=== PATIENT | female | born 1960 | race Caucasian/White ===

== ENCOUNTER 2021-08-21 13:57 | Outpatient (CLI) | payer OTHER | END 2021-08-21 13:58 | disposition critical access hospital (66) | LOC: EMS 13:57 | DX: M25.552 Pain in left hip (principal); W54.1XXA Struck by dog, initial encounter; W18.39XA Other fall on same level, initial encounter; Y92.838 Other recreation area as the place of occurrence of the external cause | CPT/HCPCS: A0425; A0429 ==

== ENCOUNTER 2021-08-21 14:15 | Observation (INO) | payer OTHER ==
--- NOTE | 2021-08-21 14:30 | ED Physician Documentation ---
PD HPI LOWER EXT INJURY - Stated complaint Stated Complaint: L HIP PX - History obtained from History obtained from: Patient, EMS - History of Present Illness PD HPI LOW EXT INJURY LOCATION: Left, Hip Type of injury: Fall Where injury occurred: Park Timing - onset: Today Timing - duration: Minutes Timing - details: Abrupt onset, Still present Improved by: Rest, Immobilization Worsened by: Moving, Palpating Associated symptoms: No: Weakness, Numbness, Tingling, Swelling, Discolored Similar symptoms before: Has not had sx before Recently seen: Not recently seen - Additional information Additional information: Previously well 61-year-old female was out walking her dog when she was knocked over by a dog at the dog park and fell onto her left hip. She heard a pop and crack and has pain in that side. She was not willing to get up and try to ambulate. Medics went to pick her up and found that her leg was not rotated or shortened the and that she had pain. She was transported BLS to the emergency department without further complication. Review of Systems Constitutional: denies: Fever Ears: denies: Ear pain Nose: denies: Congestion Throat: denies: Sore throat Cardiac: denies: Chest pain / pressure Respiratory: denies: Dyspnea, Cough GI: denies: Abdominal Pain, Nausea, Vomiting, Constipation : denies: Dysuria, Frequency Skin: denies: Rash Musculoskeletal: reports: Extremity pain. denies: Neck pain, Back pain Neurologic: denies: Generalized weakness, Focal weakness, Numbness PD PAST MEDICAL HISTORY - Allergies Allergies/Adverse Reactions: Allergies Allergy/AdvReac Type Severity Reaction Status Date / Time No Known Drug Allergies Allergy Verified 08/21/21 16:36 PD ED PE NORMAL - Vitals Vital signs reviewed: Yes (hypertensive ) - General General: Alert and oriented X 3, No acute distress, Well developed/nourished - HEENT HEENT: Atraumatic, PERRL, EOMI - Neck Neck: Supple, no meningeal sign - Respiratory Respiratory: No respiratory distress - Derm Derm: Normal color, Warm and dry, No rash - Extremities Extremities: No deformity, No edema, Other (There is not pain to palpation of the trochanter or with flex ext of the hip passively. There is pain to direct palpation over the left pubic ramus. Obvious and bad pain. 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, No motor deficit, No sensory deficit, Normal speech Eye Opening: Spontaneous Motor: Obeys Commands Verbal: Oriented GCS Score: 15 - Psych Psych: Normal mood, Normal affect Results - Vitals Vitals: Vital Signs - 24 hr 08/21/21 08/21/21 08/21/21 14:28 14:37 16:37 Temperature 36.3 C L 36.3 C L Heart Rate 68 68 70 Respiratory 18 20 15 Rate Blood Pressure 159/94 H 159/94 H 149/83 H O2 Saturation 100 100 98 08/21/21 18:00 Temperature Heart Rate 70 Respiratory 15 Rate Blood Pressure 149/83 H O2 Saturation 98 Oxygen O2 Source Room air - Labs Labs: Laboratory Tests 08/21/21 18:14 WBC 12.9 H RBC 4.06 L Hgb 12.7 Hct 38.1 MCV 93.8 MCH 31.3 H MCHC 33.3 RDW 12.0 Plt Count 326 MPV 8.8 Neut # (Auto) 10.7 H Lymph # (Auto) 1.2 L [place] # (Auto) 0.8 Eos # (Auto) 0.1 Baso # (Auto) 0.1 Absolute Nucleated RBC 0.00 Nucleated RBC % 0.0 - Rads (name of study) hip w pelvis L Radiology: Prelim report reviewed (Impression: Left superior and inferior pubic rami fractures. Mild displacement. Moderate bilateral hip osteoarthritis.), EMP read indepedently, See rad report PD MEDICAL DECISION MAKING - ED course Complexity details: reviewed old records, reviewed results, re-evaluated patient, considered differential, d/w patient ED course: 61 y/o female with GLF at the [facility] has broken her pelvis with superior and inferior pubic rami fractures. She is administered IM toradal and a wheeled walker. We will provide some narcotic pain reliever and an ortho follow up. Although this seems like a reasonable plan for of fracture the practicality is an doable. This young person has enough force to this fracture that she has overriding bones and any movement that she is having is causing significant spasm in her leg. She lives alone and she has 2 children that may be able to come to help her within the next day or 2. This is not a safe discharge for home. We did attempt to ambulate the patient with crutches and with a walker and with a brace to stabilize her knee on the affected side. The patient was able to sit up at the side of the bed by herself. She is not able to ambulate any distance with assistance. I contacted our hospitalist Dr. Senait Jacobs and she graciously agreed to host the patient in the hospital. Departure - Departure Disposition: ED Place in Observation Clinical Impression: Pubic ramus fracture Qualifiers: Encounter type: initial encounter Fracture type: closed Laterality: left Qualified Code(s): S32.592A - Other specified fracture of left pubis, initial encounter for closed fracture Condition: Stable
--- NOTE | 2021-08-21 14:57 | XRAY Report ---
PROCEDURE: Hip w/Pelvis 2-3V LT INDICATIONS: fall L pubic ramus tender TECHNIQUE: AP pelvis with lateral view(s) of the left hip(s). COMPARISON: None. FINDINGS: Bones: No fractures or dislocations. Oblique fracture through the left superior and inferior pubic r ami noted.. No suspicious bony lesions. Moderate acetabular joint space narrowing Soft tissues: The visualized bowel gas pattern is normal. No suspicious soft tissue calcifications. IMPRESSION: Left superior and inferior pubic rami fractures. Mild displacement. Moderate bilateral hip osteoarthritis Reviewed by: Brandt Peres MD on 08/21/2021 1:55 PM [email or web address] Approved by: Brandt Peres MD on 08/21/2021 1:55 PM AKDT Station ID: [id number]
[2021-08-21] MEDS ORDERED: KETOROLAC 60 MG/2 ML VIAL IM STA (15:01)
[2021-08-21] MEDS ORDERED: ONDANSETRON ODT 4 MG TABLET TL STA (15:50)
[2021-08-21] MEDS ORDERED: HYDROmorphone 1 MG/ML CARPUJECT IM STA (15:50)
[2021-08-21] MEDS ORDERED: ONDANSETRON ODT 4 MG TABLET TL PRN (18:06)
[2021-08-21] MEDS ORDERED: ONDANSETRON 4 MG/2 ML VIAL IVP PRN (18:06)
[2021-08-21] MEDS ORDERED: SODIUM CHLORIDE FLUSH 0.9% 10 ML SYRINGE IVP PRN (18:06)
[2021-08-21] MEDS ORDERED: hydrALAZINE INJ 20 MG/ML VIAL IVP PRN (18:10)
[2021-08-21 18:23] LABS: BASOPHILS # (AUTO) 0.1 10^3/uL (0.0-0.1); BASOPHILS % (AUTO) 0.8 %; EOSINOPHILS # (AUTO) 0.1 10^3/uL (0.0-0.7); EOSINOPHILS % (AUTO) 0.6 %; HCT - HEMATOCRIT 38.1 % (37.0-47.0); HGB - HEMOGLOBIN 12.7 g/dL (12.0-16.0); LYMPHOCYTES # (AUTO) 1.2 10^3/uL (1.5-3.5); LYMPHOCYTES % (AUTO) 8.9 %; MEAN CORPUSCULAR HEMOGLOBIN 31.3 pg (27.0-31.0); MEAN CORPUSCULAR HGB CONC 33.3 g/dL (32.0-36.0); MEAN CORPUSCULAR VOLUME 93.8 fL (81.0-99.0); MEAN PLATELET VOLUME 8.8 fL (7.9-10.8); MONOCYTES # (AUTO) 0.8 10^3/uL (0.0-1.0); MONOCYTES % (AUTO) 6.4 %; NEUTROPHILS # (AUTO) 10.7 10^3/uL (1.5-6.6); NEUTROPHILS % (AUTO) 82.8 %; PLT - PLATELET COUNT 326 10^3/uL (130-450); RED BLOOD COUNT 4.06 10^6/uL (4.20-5.40); WHITE BLOOD COUNT 12.9 x10^3/uL (4.8-10.8)
[2021-08-21 18:31] LABS: INR 1.2 (0.8-1.2); PT - PROTHROMBIN TIME 12.9 secs (9.9-12.6)
[2021-08-21 18:35] LABS: ALBUMIN 4.2 g/dL (3.2-5.5); ALBUMIN/GLOBULIN RATIO 1.2 (1.0-2.2); BILIRUBIN,TOTAL 0.8 mg/dL (0.2-1.0); CALCIUM 8.9 mg/dL (8.5-10.3); CREATININE 0.7 mg/dL (0.4-1.0); POTASSIUM 3.3 mmol/L (3.5-5.0); TOTAL PROTEIN 7.7 g/dL (6.7-8.2)
[2021-08-21 20:11] LABS: B. PARAPERTUSSIS- RESP PCR PAN NOT DETECTED; B. PERTUSSIS- RESP PCR PANEL NOT DETECTED; C. PNEUMONIAE- RESP PCR PANEL NOT DETECTED; CORONAVIRUS 229E-RESP PCR NOT DETECTED; CORONAVIRUS HKU1-RESP PCR NOT DETECTED; CORONAVIRUS NL63-RESP PCR NOT DETECTED; CORONAVIRUS OC43-RESP PCR NOT DETECTED; HUMAN METAPNEUMOVIRUS NOT DETECTED; INFLUENZA A- RESP PCR PANEL NOT DETECTED; INFLUENZA B - RESP PCR PANEL NOT DETECTED; M. PNEUMONIAE- RESP PCR PANEL NOT DETECTED; PARAINFLUENZA VIRUS 1 NOT DETECTED; PARAINFLUENZA VIRUS 2 NOT DETECTED; PARAINFLUENZA VIRUS 3 NOT DETECTED; PARAINFLUENZA VIRUS 4 NOT DETECTED; RHINOVIRUS/ENTEROVIRUS NOT DETECTED; RSV- RESP PCR PANEL NOT DETECTED; SARS-CoV-2 -RESP PCR PANEL NOT DETECTED
--- NOTE | 2021-08-21 20:24 | HISTORY & PHYSICAL EXAMINATION ---
Chief Complaint - Chief Complaint Chief Complaint: mechanical fall History of Present Illness - Admitted From Admitted From:: [facility] ED - History Obtained From Records Reviewed: yes History obtained from: patient - History of Present Illness HPI Comment/Other: Patient is a 61-year-old female with medical history significant for hyperlipide dago, glaucoma, osteopenia, hypothyroidism, depression, ADHD and asthma who presented to the ED after being knocked off her feet at a dog park. She landed on her hips. She was unable to bear weight when assisted to her feet. She did not hit her head or blackout at the time of the occurrence. She had an x-ray of the hips done in the ED which showed left superior and inferior pubic rami fractures. Mild displacement. Moderate bilateral hip osteoarthritis also noted. Due to significant pain and unable to bear weight she was presented for admission for further management. At bedside she appeared comfortable. She denied chest pain, dyspnea, abdominal pain, nausea, vomiting, fever or chills. History - Past Medical History Cardiovascular: reports: High cholesterol Respiratory: reports: Asthma, COPD Neuro: reports: Migraines Endocrine/Autoimmune: reports: HyPOthyroidism GI: reports: Chronic constipation, Hemorrhoids : reports: None HEENT: reports: Other Psych: reports: Depression, ADD/ADHD Musculoskeletal: reports: Osteoarthritis, Osteoporosis, Osteopenia, Other Derm: reports: None Other Past Medical History: compression fracture cervical spine. reactive asthma/ bronchitis. depression/ anxiety - Past Surgical History HEENT: reports: Cataracts, Detached retina repair, Tonsil/Adenoidectomy - Family & Social History Family History Comment/Other: mother: CHF, hypertension Social History Notes: Patient denies tobacco, alcohol or recreational substance use. - POLST Patient has POLST: No POLST Status: Full Code Meds/Allgy - Allergies Allergies/Adverse Reactions: Allergies Allergy/AdvReac Type Severity Reaction Status Date / Time No Known Drug Allergies Allergy Verified 08/21/21 16:36 Review of Systems - Constitutional Constitutional: denies: Fatigue, Fever, Weakness - Eyes Eyes: denies: Pain, Vision loss - Ears, Nose & Throat Ears, Nose & Throat: denies: Vertigo, Sore throat - Cardiovascular Cariovascular: denies: Irregular heart rate, Palpitations, Chest pain, Lightheadedness, Syncope, Exertional dyspnea - Respiratory Respiratory: denies: Cough, Sputum production, Wheezing, SOB at rest, SOB with exertion - Gastrointestinal Gastrointestinal: denies: Abdominal pain, Abdominal distention, Nausea, Vomiting - Genitourinary Genitourinary: denies: Dysuria, Frequency, Urgency, Hematuria - Musculoskeletal Musculoskeletal: denies: Muscle pain, Back pain, Muscle aches - Integumentary Integumentary: denies: Rash, Pruritis, Lesions, Dryness - Neurological Neurological: denies: General weakness, Focal weakness, Headache - Psychiatric Psychiatric: denies: Depression, Anxiety - Endocrine Endocrine: denies: Polyuria, Polydypsia - Hematologic/Lymphatic Hematologic/Lymphatic: denies: Anemia, Bruising, Petechiae Prior Level of Functionality: Patient is independent of activities of daily living. Exam - Vital Signs Vital Signs: Vital Signs x48h Temp Pulse Resp BP Pulse Ox 08/21/21 18:52 36.3 C L 70 15 98 08/21/21 18:00 70 15 149/83 H 98 08/21/21 16:37 70 15 149/83 H 98 08/21/21 14:37 36.3 C L 68 20 159/94 H 100 08/21/21 14:28 36.3 C L 68 18 159/94 H 100 - Physical Exam General Appearance: positive: Alert, Moderate distress Eyes Bilateral: positive: PERRL, EOMI ENT: positive: No signs of dehydration Neck: positive: No JVD, Trachea midline Respiratory: positive: Chest non-tender, No respiratory distress, Breath sounds nml. negative: Wheezes, Rales, Rhonchi Cardiovascular: positive: Regular rate & rhythm, No murmur Abdomen: positive: Non-tender, No organomegaly, Nml bowel sounds, No distention. negative: Guarding, Rebound Back: positive: Nml inspection Skin: positive: Color nml, No rash, Warm, Dry Extremities: positive: Non-tender, Nml appearance, No pedal edema Neurologic/Psychiatric: positive: Oriented x3, Mood/affect nml Conclusion/Plan - Problem List (1) Pubic ramus fracture Conclusion/Plan: Pain management with Toradol, Tylenol and Dilaudid as needed. Flexeril for muscle relaxant. Patient would likely need crutches upon discharge. Qualifiers: Encounter type: initial encounter Fracture type: closed Laterality: left Qualified Code(s): S32.592A - Other specified fracture of left pubis, initial encounter for closed fracture - Lab Results Fish Bones: 08/21/21 18:14 08/21/21 18:14 Core Measures - Anticipated LOS I expect patient to be DC'd or transferred within 96 hours.: Yes - DVT/VTE - Prophylaxis VTE/DVT Device ordered at admit?: Yes VTE/DVT Prophylaxis med ordered at admit?: Yes
[2021-08-21] MEDS ORDERED: POTASSIUM CHLORIDE 20 MEQ TABLET PO ONE (20:49)
[2021-08-21] MEDS: SODIUM CHLORIDE 0.9% 1,000 ML IV SCH (21:50)
[2021-08-21] MEDS: SODIUM CHLORIDE FLUSH 0.9% 10 ML SYRINGE IVP SCH (21:50)
[2021-08-21] MEDS: HYDROmorphone 0.5 MG/0.5 ML SYRINGE IVP PRN (23:00)
[2021-08-21] MEDS: KETOROLAC 15 MG/ML VIAL IVP PRN (23:00)
[2021-08-22 05:06] LABS: BASOPHILS # (AUTO) 0.1 10^3/uL (0.0-0.1); EOSINOPHILS # (AUTO) 0.1 10^3/uL (0.0-0.7); EOSINOPHILS % (AUTO) 1.6 %; HCT - HEMATOCRIT 35.7 % (37.0-47.0); HGB - HEMOGLOBIN 11.6 g/dL (12.0-16.0); LYMPHOCYTES % (AUTO) 23.9 %; MEAN CORPUSCULAR HEMOGLOBIN 30.7 pg (27.0-31.0); MEAN CORPUSCULAR HGB CONC 32.5 g/dL (32.0-36.0); MEAN CORPUSCULAR VOLUME 94.4 fL (81.0-99.0); MEAN PLATELET VOLUME 9.2 fL (7.9-10.8); MONOCYTES # (AUTO) 0.9 10^3/uL (0.0-1.0); MONOCYTES % (AUTO) 11.2 %; NEUTROPHILS # (AUTO) 5.1 10^3/uL (1.5-6.6); NEUTROPHILS % (AUTO) 61.9 %; PLT - PLATELET COUNT 305 10^3/uL (130-450); RED BLOOD COUNT 3.78 10^6/uL (4.20-5.40); RED CELL DISTRIBUTION WIDTH 12.3 % (12.0-15.0); WHITE BLOOD COUNT 8.3 x10^3/uL (4.8-10.8)
[2021-08-22 05:20] LABS: CALCIUM 8.7 mg/dL (8.5-10.3); CREATININE 0.6 mg/dL (0.4-1.0); MAGNESIUM 1.9 mg/dL (1.7-2.8); PHOSPHORUS 3.1 mg/dL (2.5-4.6); POTASSIUM 4.2 mmol/L (3.5-5.0)
[2021-08-22] MEDS: KETOROLAC 15 MG/ML VIAL IVP PRN ×2 (06:29→12:38)
[2021-08-22] MEDS: ACETAMINOPHEN 325 MG TABLET PO PRN ×2 (06:33→12:38)
[2021-08-22] MEDS: SODIUM CHLORIDE 0.9% 1,000 ML IV SCH ×2 (06:35→16:54)
[2021-08-22] MEDS: SODIUM CHLORIDE FLUSH 0.9% 10 ML SYRINGE IVP SCH ×2 (09:44→16:54)
[2021-08-22] MEDS: CYCLOBENZAPRINE 10 MG TABLET PO PRN (09:45)
[2021-08-22] MEDS: HYDROmorphone 0.5 MG/0.5 ML SYRINGE IVP PRN (11:42)
--- NOTE | 2021-08-22 15:19 | PROVIDER PROGRESS NOTE ---
Assessment/Plan - Problem List (1) Pubic ramus fracture Qualifiers: Encounter type: subsequent encounter Fracture type: closed Laterality: left Assessment/Plan: She is admitted for pain control, needs IV medications. The pain has limited her mobility significantly. Will order PT and OT to evaluate her level of functioning with this fracture and to determine if she needs DME, caregivers or placement in a SNF or respite. (2) Urinary retention. Impression/plan: Will order straight cath as needed. Will order Flomax. This problem will also need to be assessed by OT (3) Hypothyroidism Impression/plan: Will order her home thyroid dose. We will check TSH level to assess adequate replacement. (4) Glaucoma Impression/plan: Will order her home eyedrops (5) ADHD Impression/plan: Will order her home Adderall and psychiatric med. - Current Meds Current Meds: Current Medications Generic Name Dose Route Start Last Admin Trade Name Freq PRN Reason Stop Dose Admin Acetaminophen 650 mg 08/21/21 18:06 08/22/21 12:38 Acetaminophen 325 Mg Tablet PO 650 mg Q4HR PRN Administration Pain 1 to 4, or Fever Cyclobenzaprine HCl 10 mg 08/21/21 20:50 08/22/21 09:45 Cyclobenzaprine 10 Mg Tablet PO 10 mg TID PRN Administration Spasms Hydromorphone HCl 0.5 mg 08/21/21 18:11 08/22/21 11:42 Hydromorphone 0.5 Mg/0.5 Ml Syringe IVP 0.5 mg Q2H PRN Administration Severe Pain Sodium Chloride 1,000 mls @ 100 mls/hr 08/21/21 21:00 08/22/21 06:35 Normal Saline 0.9% IV 100 mls/hr .Q10H TOMMIE Administration Ketorolac Tromethamine 15 mg 08/21/21 18:11 08/22/21 12:38 Ketorolac 15 Mg/Ml Vial IVP 08/26/21 18:10 15 mg Q6HR PRN Administration PAIN 5-7 Sodium Chloride 10 ml 08/21/21 18:06 08/22/21 11:43 Sodium Chloride Flush 0.9% 10 Ml Syringe IVP 10 ml PRN PRN Administration NEEDED PER PROVIDER ORDERS Sodium Chloride 10 ml 08/22/21 01:00 08/22/21 09:44 Sodium Chloride Flush 0.9% 10 Ml Syringe IVP Not Given 0100,0900,1700 TOMMIE - Lab Result Fish Bone Diagrams: 08/22/21 04:41 08/22/21 04:41 - Additional Planning My Orders: My Active Orders 08/21/21 Dinner Regular Diet [DIET] 08/21/21 18:06 Activity Orders [RC] Q2HR IO [RC] IOSHIFT Initiate Bowel Care Protocol [RC] .protocol Initiate Personal Care Protoco [RC] .protocol Oxygen Therapy [RC] .PRN Vital Signs [RC] 0800,1600,0000 Acetaminophen [Tylenol] 650 mg PO Q4HR PRN Ondansetron Inj [Zofran Inj] 4 mg IVP Q6HR PRN Ondansetron Odt [Zofran Odt] 4 mg TL Q6HR PRN Sodium Chloride Flush 0.9% [Normal Saline Flush 0.9%] 10 ml IVP PRN PRN Code Status [OTHERS] Routine Condition of Patient [OTHERS] Routine DVT Prophylaxis [OTHERS] Routine 08/21/21 18:08 IV Insert [RC] .ONCE Initiate Line Care Protocol [RC] QSHIFT SCDs [RC] QSHIFT 08/21/21 18:10 hydrALAZINE INJ [Apresoline Inj] 10 mg IVP Q8H PRN 08/21/21 18:11 HYDROmorphone 0.5MG SYRINGE [Dilaudid 0.5MG Syringe] 0.5 mg IVP Q2H PRN Ketorolac Inj (15Mg) [Toradol Inj (15Mg)] 15 mg IVP Q6HR PRN 08/22/21 Evaluate and Treat OT [OT] Routine Evaluate and Treat PT [PT] Routine 08/22/21 01:00 Sodium Chloride Flush 0.9% [Normal Saline Flush 0.9%] 10 ml IVP 0100,0900,1700 08/22/21 14:36 Straight Catheter Insertion [RC] PRN 08/23/21 09:00 Tamsulosin [Flomax] 0.4 mg PO DAILY Subjective - Subjective Patient Reports: Other (She is unable to urinate in bed) Nursing Reports: Other (Bladder scan showed 900 cc urine) Objective Vital Signs: Vital Signs - 24 hr 08/21/21 08/21/21 08/21/21 16:37 18:00 18:52 Temperature 36.3 C L Heart Rate 70 70 70 Heart Rate [ Brachial] Respiratory 15 15 15 Rate Blood Pressure 149/83 H 149/83 H Blood Pressure [Right Brachial artery] O2 Saturation 98 98 98 08/21/21 08/21/21 08/22/21 19:30 23:59 08:20 Temperature 36.3 C L 37.1 C 37.2 C Heart Rate Heart Rate [ 73 75 75 Brachial] Respiratory 20 16 16 Rate Blood Pressure Blood Pressure 135/74 H 121/63 110/55 L [Right Brachial artery] O2 Saturation 96 100 98 08/22/21 12:27 Temperature 37.2 C Heart Rate Heart Rate [ 80 Brachial] Respiratory 16 Rate Blood Pressure Blood Pressure 124/74 [Right Brachial artery] O2 Saturation 99 Oxygen O2 Source Room air I&O (Last 24 Hrs): Intake and Output Totals x24h 08/20/21 08/21/21 08/22/21 23:59 23:59 23:59 Intake Total 740 1655 Output Total 1000 2450 Balance -260 -795 General: Other (Cachectic female, appears older than her age) HEENT: Atraumatic, Mucous membr. moist/pink Neck: Supple, No JVD Neuro: Alert, Non Focal Cardiovascular: Regular rate, No murmurs Respiratory: No respiratory distress, Breath sounds nml Abdomen: Normal bowel sounds, Soft Extremities: No clubbing, No edema - Results Results: Laboratory Results WBC 8.3 x10^3/uL (4.8-10.8) 08/22/21 04:41 RBC 3.78 10^6/uL (4.20-5.40) L 08/22/21 04:41 Hgb 11.6 g/dL (12.0-16.0) L 08/22/21 04:41 Hct 35.7 % (37.0-47.0) L 08/22/21 04:41 MCV 94.4 fL (81.0-99.0) 08/22/21 04:41 MCH 30.7 pg (27.0-31.0) 08/22/21 04:41 MCHC 32.5 g/dL (32.0-36.0) 08/22/21 04:41 RDW 12.3 % (12.0-15.0) 08/22/21 04:41 Plt Count 305 10^3/uL (130-450) 08/22/21 04:41 MPV 9.2 fL (7.9-10.8) 08/22/21 04:41 Neut # (Auto) 5.1 10^3/uL (1.5-6.6) 08/22/21 04:41 Lymph # (Auto) 2.0 10^3/uL (1.5-3.5) 08/22/21 04:41 [place] # (Auto) 0.9 10^3/uL (0.0-1.0) 08/22/21 04:41 Eos # (Auto) 0.1 10^3/uL (0.0-0.7) 08/22/21 04:41 Baso # (Auto) 0.1 10^3/uL (0.0-0.1) 08/22/21 04:41 Absolute Nucleated RBC 0.00 x10^3/uL 08/22/21 04:41 Nucleated RBC % 0.0 /100WBC 08/22/21 04:41 PT 12.9 secs (9.9-12.6) H 08/21/21 18:14 INR 1.2 (0.8-1.2) 08/21/21 18:14 Sodium 136 mmol/L (135-145) 08/22/21 04:41 Potassium 4.2 mmol/L (3.5-5.0) 08/22/21 04:41 Chloride 103 mmol/L (101-111) 08/22/21 04:41 Carbon Dioxide 25 mmol/L (21-32) 08/22/21 04:41 Anion Gap 8.0 (6-13) 08/22/21 04:41 BUN 16 mg/dL (6-20) 08/22/21 04:41 Creatinine 0.6 mg/dL (0.4-1.0) 08/22/21 04:41 Estimated GFR (MDRD) 102 (>89) 08/22/21 04:41 Glucose 110 mg/dL (70-100) H 08/22/21 04:41 Calcium 8.7 mg/dL (8.5-10.3) 08/22/21 04:41 Phosphorus 3.1 mg/dL (2.5-4.6) 08/22/21 04:41 Magnesium 1.9 mg/dL (1.7-2.8) 08/22/21 04:41 Total Bilirubin 0.8 mg/dL (0.2-1.0) 08/21/21 18:14 AST 19 IU/L (10-42) 08/21/21 18:14 ALT 26 IU/L (10-60) 08/21/21 18:14 Alkaline Phosphatase 53 IU/L (42-121) 08/21/21 18:14 Total Protein 7.7 g/dL (6.7-8.2) 08/21/21 18:14 Albumin 4.2 g/dL (3.2-5.5) 08/21/21 18:14 Globulin 3.5 g/dL (2.1-4.2) 08/21/21 18:14 Albumin/Globulin Ratio 1.2 (1.0-2.2) 08/21/21 18:14 Nasal Adenovirus (PCR) NOT DETECTED 08/21/21 18:15 Nasal B. parapertussis DNA (PCR) NOT DETECTED 08/21/21 18:15 Nasal Coronavir 229E PCR NOT DETECTED 08/21/21 18:15 Nasal Coronavir HKU1 PCR NOT DETECTED 08/21/21 18:15 Nasal Coronavir NL63 PCR NOT DETECTED 08/21/21 18:15 Nasal Coronavir OC43 PCR NOT DETECTED 08/21/21 18:15 Nasal Enterovir/Rhinovir PCR NOT DETECTED 08/21/21 18:15 Nasal Influenza B PCR NOT DETECTED 08/21/21 18:15 Nasal Influenza A PCR NOT DETECTED 08/21/21 18:15 Nasal Parainfluen 1 PCR NOT DETECTED 08/21/21 18:15 Nasal Parainfluen 2 PCR NOT DETECTED 08/21/21 18:15 Nasal Parainfluen 3 PCR NOT DETECTED 08/21/21 18:15 Nasal Parainfluen 4 PCR NOT DETECTED 08/21/21 18:15 Nasal RSV (PCR) NOT DETECTED 08/21/21 18:15 Nasal B.pertussis DNA PCR NOT DETECTED 08/21/21 18:15 Nasal C.pneumoniae (PCR) NOT DETECTED 08/21/21 18:15 Tonio Human Metapneumo PCR NOT DETECTED 08/21/21 18:15 Nasal M.pneumoniae (PCR) NOT DETECTED 08/21/21 18:15 Nasal SARS-CoV-2 (PCR) NOT DETECTED 08/21/21 18:15 SARS-CoV-2 (PCR) NOT DETECTED 08/21/21 18:15
[2021-08-22] MEDS ORDERED: diphenhydrAMINE 25 MG CAPSULE PO PRN (20:46)
[2021-08-22] MEDS ORDERED: ATORVASTATIN 10 MG TABLET PO SCH (21:00)
[2021-08-22] MEDS: DORZOLAMIDE/TIMOLOL OPHTH DROPS EACHEYE SCH (22:08)
[2021-08-23] MEDS: KETOROLAC 15 MG/ML VIAL IVP PRN ×3 (00:19→15:39)
[2021-08-23] MEDS: SODIUM CHLORIDE FLUSH 0.9% 10 ML SYRINGE IVP SCH ×3 (00:27→15:40)
[2021-08-23] MEDS: SODIUM CHLORIDE 0.9% 1,000 ML IV SCH ×2 (02:06→11:27)
[2021-08-23] MEDS ORDERED: LEVOTHYROXINE 75 MCG TABLET PO SCH (07:00)
[2021-08-23] MEDS: DORZOLAMIDE/TIMOLOL OPHTH DROPS EACHEYE SCH (08:54)
[2021-08-23] MEDS ORDERED: PARoxetine 10 MG TABLET PO SCH (09:00)
[2021-08-23] MEDS ORDERED: TAMSULOSIN 0.4 MG CAPSULE PO SCH (09:00)
[2021-08-23] MEDS ORDERED: buPROPion XL 150 MG TABLET PO SCH (09:00)
[2021-08-23] MEDS: ACETAMINOPHEN 325 MG TABLET PO PRN (10:08)
[2021-08-23] MEDS: oxyCODONE 5 MG TABLET PO PRN ×2 (10:09→17:51)
[2021-08-23] MEDS ORDERED: CALCIUM CARB (OYSTER SHELL) 500 MG TABLET PO SCH (11:00)
[2021-08-23] MEDS ORDERED: DOCUSATE SODIUM 100 MG CAPSULE PO SCH (11:00)
[2021-08-23] MEDS ORDERED: CHOLECALCIFEROL 400 UNIT TABLET PO SCH (11:00)
--- NOTE | 2021-08-23 14:53 | PROVIDER PROGRESS NOTE ---
Assessment/Plan - Problem List (1) Pubic ramus fracture Qualifiers: Encounter type: subsequent encounter Fracture type: closed Laterality: left Assessment/Plan: She is admitted for pain control, received IV Dilaudid. Today she says the Dilaudid is too strong and making her weak, and she requests oxycodone. We will change to oxycodone for pain control. The pain in her L hip area has limited her mobility significantly. She had PT evaluate her level of functioning with this fracture and to determine if she needs DME, caregivers or placement in a SNF or respite. The physical therapist has advised that she needs SNF, or else she needs a lot of caregivers, will need rehab and would need alot of durable medical equipment supplies. SW was informed and is looking for a SNF for her to be [facility] to. There was no orthopedic consults since this Dx is not a surgical indication. PT stated that usually patients with pelvic fractures have no weight bearing restrictions. But the patient tried walking with crutches and was only using her right leg for weight bearing. (2) Urinary retention. Impression/plan: She has needed straight cath twice We ordered Flomax. This problem will also need to be assessed by OT (3) Hypothyroidism Impression/plan: We ordered her home thyroid dose. Her TSH was adequate (4) Glaucoma Impression/plan: We ordered her home eyedrops (5) ADHD Impression/plan: We ordered"patient's own med" to use her home Adderall dose, as we do not stock it on fgormulary here. Her psychiatric med was also continued. - Current Meds Current Meds: Current Medications Generic Name Dose Route Start Last Admin Trade Name Debbie PRN Reason Stop Dose Admin Acetaminophen 650 mg 08/21/21 18:06 08/23/21 10:08 Acetaminophen 325 Mg Tablet PO 650 mg Q4HR PRN Administration Pain 1 to 4, or Fever Atorvastatin Calcium 10 mg 08/22/21 21:00 08/22/21 22:05 Atorvastatin 10 Mg Tablet PO 10 mg QPM TOMMIE Administration Bupropion HCl 300 mg 08/23/21 09:00 08/23/21 08:54 Bupropion Xl 150 Mg Tablet PO 300 mg DAILY TOMMIE Administration Calcium Carbonate/Glycine 500 mg 08/23/21 11:00 08/23/21 11:03 Calcium Carb (Oyster Shell) 500 Mg Tablet PO 500 mg DAILY TOMMIE Administration Cholecalciferol 400 unit 08/23/21 11:00 08/23/21 11:03 Cholecalciferol 400 Unit Tablet PO 400 unit DAILY TOMMIE Administration Cyclobenzaprine HCl 10 mg 08/21/21 20:50 08/22/21 09:45 Cyclobenzaprine 10 Mg Tablet PO 10 mg TID PRN Administration Spasms Diphenhydramine HCl 25 mg 08/22/21 20:46 08/22/21 22:05 Diphenhydramine 25 Mg Capsule PO 25 mg QPM PRN Administration Insomnia Docusate Sodium 100 mg 08/23/21 11:00 08/23/21 11:03 Docusate Sodium 100 Mg Capsule PO 100 mg DAILY TOMMIE Administration Dorzolamide/Timolol 1 drops 08/22/21 21:00 08/23/21 08:54 Dorzolamide/Timolol Ophth Drops EACHEYE 1 drops BID TOMMIE Administration Sodium Chloride 1,000 mls @ 100 mls/hr 08/21/21 21:00 08/23/21 11:27 Normal Saline 0.9% IV 100 mls/hr .Q10H TOMMIE Administration Ketorolac Tromethamine 15 mg 08/21/21 18:11 08/23/21 06:11 Ketorolac 15 Mg/Ml Vial IVP 08/26/21 18:10 15 mg Q6HR PRN Administration PAIN 5-7 Levothyroxine Sodium 75 mcg 08/23/21 07:00 08/23/21 06:11 Levothyroxine 75 Mcg Tablet PO 75 mcg QDAC TOMMIE Administration Oxycodone HCl 5 mg 08/23/21 08:02 08/23/21 10:09 Oxycodone 5 Mg Tablet PO 5 mg Q4HR PRN Administration PAIN Paroxetine HCl 40 mg 08/23/21 09:00 08/23/21 08:53 Paroxetine 10 Mg Tablet PO 40 mg DAILY TOMMIE Administration Sodium Chloride 10 ml 08/21/21 18:06 08/22/21 11:43 Sodium Chloride Flush 0.9% 10 Ml Syringe IVP 10 ml PRN PRN Administration NEEDED PER PROVIDER ORDERS Sodium Chloride 10 ml 08/22/21 01:00 08/23/21 08:55 Sodium Chloride Flush 0.9% 10 Ml Syringe IVP 10 ml 0100,0900,1700 TOMMIE Administration Tamsulosin HCl 0.4 mg 08/23/21 09:00 08/23/21 08:54 Tamsulosin 0.4 Mg Capsule PO 0.4 mg DAILY TOMMIE Administration - Lab Result Fish Bone Diagrams: 08/22/21 04:41 08/22/21 04:41 - Additional Planning My Orders: My Active Orders 08/22/21 14:36 Straight Catheter Insertion [RC] PRN 08/22/21 21:00 Atorvastatin [Lipitor] 10 mg PO QPM Dorzolamide/Timolol Ophth Soln [Cosopt] 1 drops EACHEYE BID 08/23/21 07:00 Levothyroxine [Synthroid] 75 mcg PO QDAC 08/23/21 08:02 oxyCODONE [Roxicodone] 5 mg PO Q4HR PRN 08/23/21 09:00 PARoxetine [Paxil] 40 mg PO DAILY Tamsulosin [Flomax] 0.4 mg PO DAILY buPROPion [Wellbutrin Xl] 300 mg PO DAILY 08/23/21 11:00 Calcium Carb (Oyster Shell) [Oysco-500] 500 mg PO DAILY Cholecalciferol [Vitamin D3] 400 unit PO DAILY Docusate Sodium 100Mg Capsule [Colace 100Mg Capsule] 100 mg PO DAILY 08/24/21 09:00 Patient Own Controlled 1.5 each PO DAILY 08/27/21 06:00 Alendronate [Fosamax] 70 mg PO Q7D Subjective - Subjective Patient Reports: Pain Objective Vital Signs: Vital Signs - 24 hr 08/22/21 08/23/21 08/23/21 15:27 00:13 04:53 Temperature 37.5 C 36.8 C 37.3 C Heart Rate [ 72 73 75 Brachial] Heart Rate [ Supine] Respiratory 14 16 16 Rate Blood Pressure 111/66 155/89 H 148/85 H [Right Brachial artery] Blood Pressure [Supine] O2 Saturation 98 100 98 08/23/21 08/23/21 08/23/21 08:00 10:32 13:34 Temperature 37.1 C 37.1 C Heart Rate [ 89 70 Brachial] Heart Rate [ 74 Supine] Respiratory 16 18 Rate Blood Pressure 120/77 125/75 [Right Brachial artery] Blood Pressure 134/76 H [Supine] O2 Saturation 97 99 Oxygen O2 Source Room air I&O (Last 24 Hrs): Intake and Output Totals x24h 08/21/21 08/22/21 08/23/21 23:59 23:59 23:59 Intake Total 740 3263 3525 Output Total 1000 2450 5050 Balance -260 813 -1525 General: Alert, Oriented x3 HEENT: Mucous membr. moist/pink Neck: Supple Neuro: Alert, Non Focal Cardiovascular: Regular rate Respiratory: No respiratory distress Abdomen: Soft Extremities: No edema - Results Results: Laboratory Results WBC 8.3 x10^3/uL (4.8-10.8) 08/22/21 04:41 RBC 3.78 10^6/uL (4.20-5.40) L 08/22/21 04:41 Hgb 11.6 g/dL (12.0-16.0) L 08/22/21 04:41 Hct 35.7 % (37.0-47.0) L 08/22/21 04:41 MCV 94.4 fL (81.0-99.0) 08/22/21 04:41 MCH 30.7 pg (27.0-31.0) 08/22/21 04:41 MCHC 32.5 g/dL (32.0-36.0) 08/22/21 04:41 RDW 12.3 % (12.0-15.0) 08/22/21 04:41 Plt Count 305 10^3/uL (130-450) 08/22/21 04:41 MPV 9.2 fL (7.9-10.8) 08/22/21 04:41 Neut # (Auto) 5.1 10^3/uL (1.5-6.6) 08/22/21 04:41 Lymph # (Auto) 2.0 10^3/uL (1.5-3.5) 08/22/21 04:41 [place] # (Auto) 0.9 10^3/uL (0.0-1.0) 08/22/21 04:41 Eos # (Auto) 0.1 10^3/uL (0.0-0.7) 08/22/21 04:41 Baso # (Auto) 0.1 10^3/uL (0.0-0.1) 08/22/21 04:41 Absolute Nucleated RBC 0.00 x10^3/uL 08/22/21 04:41 Nucleated RBC % 0.0 /100WBC 08/22/21 04:41 PT 12.9 secs (9.9-12.6) H 08/21/21 18:14 INR 1.2 (0.8-1.2) 08/21/21 18:14 Sodium 136 mmol/L (135-145) 08/22/21 04:41 Potassium 4.2 mmol/L (3.5-5.0) 08/22/21 04:41 Chloride 103 mmol/L (101-111) 08/22/21 04:41 Carbon Dioxide 25 mmol/L (21-32) 08/22/21 04:41 Anion Gap 8.0 (6-13) 08/22/21 04:41 BUN 16 mg/dL (6-20) 08/22/21 04:41 Creatinine 0.6 mg/dL (0.4-1.0) 08/22/21 04:41 Estimated GFR (MDRD) 102 (>89) 08/22/21 04:41 Glucose 110 mg/dL (70-100) H 08/22/21 04:41 Calcium 8.7 mg/dL (8.5-10.3) 08/22/21 04:41 Phosphorus 3.1 mg/dL (2.5-4.6) 08/22/21 04:41 Magnesium 1.9 mg/dL (1.7-2.8) 08/22/21 04:41 Total Bilirubin 0.8 mg/dL (0.2-1.0) 08/21/21 18:14 AST 19 IU/L (10-42) 08/21/21 18:14 ALT 26 IU/L (10-60) 08/21/21 18:14 Alkaline Phosphatase 53 IU/L (42-121) 08/21/21 18:14 Total Protein 7.7 g/dL (6.7-8.2) 08/21/21 18:14 Albumin 4.2 g/dL (3.2-5.5) 08/21/21 18:14 Globulin 3.5 g/dL (2.1-4.2) 08/21/21 18:14 Albumin/Globulin Ratio 1.2 (1.0-2.2) 08/21/21 18:14 TSH 3.69 uIU/mL (0.34-5.60) 08/23/21 04:43 Nasal Adenovirus (PCR) NOT DETECTED 08/21/21 18:15 Nasal B. parapertussis DNA (PCR) NOT DETECTED 08/21/21 18:15 Nasal Coronavir 229E PCR NOT DETECTED 08/21/21 18:15 Nasal Coronavir HKU1 PCR NOT DETECTED 08/21/21 18:15 Nasal Coronavir NL63 PCR NOT DETECTED 08/21/21 18:15 Nasal Coronavir OC43 PCR NOT DETECTED 08/21/21 18:15 Nasal Enterovir/Rhinovir PCR NOT DETECTED 08/21/21 18:15 Nasal Influenza B PCR NOT DETECTED 08/21/21 18:15 Nasal Influenza A PCR NOT DETECTED 08/21/21 18:15 Nasal Parainfluen 1 PCR NOT DETECTED 08/21/21 18:15 Nasal Parainfluen 2 PCR NOT DETECTED 08/21/21 18:15 Nasal Parainfluen 3 PCR NOT DETECTED 08/21/21 18:15 Nasal Parainfluen 4 PCR NOT DETECTED 08/21/21 18:15 Nasal RSV (PCR) NOT DETECTED 08/21/21 18:15 Nasal B.pertussis DNA PCR NOT DETECTED 08/21/21 18:15 Nasal C.pneumoniae (PCR) NOT DETECTED 08/21/21 18:15 Tonio Human Metapneumo PCR NOT DETECTED 08/21/21 18:15 Nasal M.pneumoniae (PCR) NOT DETECTED 08/21/21 18:15 Nasal SARS-CoV-2 (PCR) NOT DETECTED 08/21/21 18:15 SARS-CoV-2 (PCR) NOT DETECTED 08/21/21 18:15
--- NOTE | 2021-08-23 14:59 | PHARMACY PROGRESS NOTE ---
- Best Possible Medication History Admit Date and Time: 08/21/211805 Processed by: Pharmacy Medication History completed: Yes Patient Interview: Pt unable to participate Secondary Source(s): Physician records, Pharmacy records, Insurance records As the person ultimately responsible for medication therapy, providers are able to order a medication from an existing home medication list in [facility] via the "Reconcile Routine" prior to Confirmation of that medication by technical support specialist. Such practice is discouraged except when the physician, in their clinical judgment, deems that a medical need exists for a medication without regard to previous use.
--- NOTE | 2021-08-23 16:03 | Discharge Plan ---
Discharge Plan Problem Reviewed?: Yes Disposition: 06 Home Health Service Condition: Poor Prescriptions: oxyCODONE [Roxicodone] 5 mg PO Q4HR PRN #30 tablet PRN Reason: Severe Pain Docusate Sodium 100Mg Capsule [Colace 100Mg Capsule] 100 mg PO DAILY #30 cap Cyclobenzaprine [Flexeril] 10 mg PO TID PRN #30 tablet PRN Reason: Spasms Tamsulosin [Flomax] 0.4 mg PO DAILY PRN #10 cap PRN Reason: As Needed Per Provider Orders Calcium Carb (Oyster Shell) [Oysco-500] 500 mg PO DAILY #30 tablet Cholecalciferol [Vitamin D3] 400 unit PO DAILY #30 tablet Diet: Regular Activity Restrictions: Activity as Tolerated Shower Restrictions: No Driving Restrictions: Yes Assistance Devices: Wheelchair, Walker, Crutches, Other (Toilet chair) Health Concerns: You were placed in the hospital for pain management after you fell and broke your pelvis. You were evaluated by Physical Therapy and recommendations are for rehab at a [facility] facility. But you are choosing to go home and have arranged caregivers and will need several pieces of medical equipment: wheelchair, crutches, front wheel walker, and toilet chair. A Home Health agency has been ordered for you and they will contact you about coming out to the house to provide Physical Therapy, Occupational Therapy and a bath aide. You will need to call for lift assistance, in order to be transferred from the vehicle to the second floor of your house, then remain on that floor. New prescriptions for medicines for pain control, muscle spasms, vitamin D and Calcium for bone strength, and if you have trouble urinating, have all been electronically sent to your [facility] pharmacy in [place]. Please resume all your other usual pre-hospital medications. Plan of Treatment: As above. Care Goals: Improvement in symptoms and stabilization are the goals. Assessment: These written instructions are provided as reminders. Additional Instructions or Follow Up instructions: If you have new or worsening symptoms, call your primary care provider for advice or come to the emergency department. Follow-Up Care: Home Health - PT, Home Health - OT No Smoking: If you smoke, Please STOP! Call for help. Follow-up with: Laya Adler ARNP [Primary Care Provider] -
[2021-08-23 16:49] VITALS: BP 134/76
--- NOTE | 2021-08-23 17:22 | DISCHARGE SUMMARY ---
Discharge Summary Admit Date: 08/21/21 Discharge Date: 08/23/21 Discharging Provider: Dr Valery Jacobs Primary Care Provider: MOISE Adler Condition at Discharge: Poor Discharge Disposition: Home Health Service - [facility] History of Present Illness: From the admission H&P of Dr Nandini Warren: Patient is a 61-year-old white female with medical history significant for hyperlipidemia, glaucoma, osteopenia, hypothyroidism, depression, ADHD and asthma who presented to the ED after being [place] feet [place] a dog park. She landed on her L hip ralph says she heard a snap. She was unable to bear weight when assisted to her feet. She did not hit her head or blackout at the time of the occurrence. She had an x-ray of the hips done in the ED which showed left superior and inferior pubic rami fractures with mild displacement. Moderate bilateral hip osteoarthritis also noted. Due to significant pain and unable to bear weight she was presented for hospitalization for further management. At bedside she appeared comfortable. She denied chest pain, dyspnea, abdominal pain, nausea, vomiting, fever or chills. - HOSPITAL COURSE Hospital Course: 1) Pubic ramus fracture She was admitted for pain control, received IV Dilaudid, which she felt was too strong and made her weak, and she requested oxycodone. The pain in her L hip area has limited her mobility significantly. She had PT evaluate her level of functioning with this fracture and to determine if she needs DME, caregivers or placement in a SNF or respite. The physical therapist has advised that she needs SNF, or else she needs a lot of caregivers, will need rehab and would need alot of durable medical equipment supplies. She chose to go home, is to be on oe floor after lift assist buster the house, is to have son and daughter saty with her and Home Health PT and OT were ordered. Oxycodone was prescribed for home use, as well as Flexeril, vitamin D and calcium, she was already on Alendronate. (2) Urinary retention. She needed straight catheterization done twice. We ordered Flomax and sent her home with this new prescription. (3) Hypothyroidism Her TSH was adequate. We ordered her home thyroid dose while here. (4) Glaucoma We ordered her home eyedrops (5) ADHD We ordered "patient's own med" to use her home Adderall dose, as we do not stock it on formulary here. Her psychiatric med was also continued. - ALLERGIES Allergies/Adverse Reactions: Allergies Allergy/AdvReac Type Severity Reaction Status Date / Time No Known Drug Allergies Allergy Verified 08/23/21 14:58 - MEDICATIONS Home Medications: Ambulatory Orders Medication Instructions Recorded Confirmed Alendronate Sodium 70 mg PO Q7D 08/22/21 08/22/21 Bupropion HCl [Wellbutrin Xl] 300 mg PO DAILY 08/22/21 08/22/21 Dextroamphetamine/Amphetamine 45 mg PO DAILY 08/22/21 08/22/21 [Adderall 30 mg Tablet] Dorzolamide/Timolol Ophth Soln 1 drops OPTH BID 08/22/21 08/22/21 [Cosopt] Levothyroxine [Synthroid] 75 mcg PO QDAC 08/22/21 08/22/21 PARoxetine HCl [Paxil] 40 mg PO DAILY 08/22/21 08/22/21 Simvastatin [Zocor] 20 mg PO QPM 08/22/21 08/22/21 Acetaminophen [Tylenol] 650 mg PO Q4HR PRN tablet 08/23/21 Calcium Carb (Oyster Shell) 500 mg PO DAILY #30 tablet 08/23/21 [Oysco-500] Cholecalciferol [Vitamin D3] 400 unit PO DAILY #30 tablet 08/23/21 Cyclobenzaprine [Flexeril] 10 mg PO TID PRN #30 tablet 08/23/21 Docusate Sodium 100Mg Capsule 100 mg PO DAILY #30 cap 08/23/21 [Colace 100Mg Capsule] Tamsulosin [Flomax] 0.4 mg PO DAILY PRN #10 cap 08/23/21 oxyCODONE [Roxicodone] 5 mg PO Q4HR PRN #30 tablet 08/23/21 - PHYSICAL EXAM AT DISCHARGE General Appearance: positive: No acute distress, Alert, Other (Thin white female) Eyes Bilateral: positive: Normal inspection, EOMI ENT: positive: ENT inspection nml Neck: positive: Nml inspection Respiratory: positive: Chest non-tender Cardiovascular: positive: Regular rate & rhythm Abdomen: positive: No distention Skin: positive: Warm, Dry Extremities: positive: No pedal edema Neurologic/Psychiatric: positive: Oriented x3 (Non-focal) - LABS Result Diagrams: 08/22/21 04:41 08/22/21 04:41 - DIAGNOSTIC IMAGING Diagnostic Imaging Results: Final report reviewed - FOLLOW UP Follow Up: See PCP when possible to leave house or via telemedicine - TIME SPENT Time Spent in Discharge (Minutes): 60
[2021-08-23] MEDS: CYCLOBENZAPRINE 10 MG TABLET PO PRN (17:51)
[2021-08-24] MEDS ORDERED: AMPHETAMINE PO SCH (09:00)
[2021-08-24] MEDS ORDERED: DEXTROAMPHETAMINE PO SCH (09:00)
[2021-08-27] MEDS ORDERED: ALENDRONATE 70 MG TABLET PO SCH (06:00)
== END 2021-08-23 18:21 | disposition home health service (06) ==
LOC: EDUNIT# → ED 14:15 → MS2 18:06
PROVIDERS: ADMIT Internal Medicine; ATTEND Internal Medicine
DX: G89.11 Acute pain due to trauma (principal); S32.592A Other specified fracture of left pubis, initial encounter for closed fracture; W54.1XXA Struck by dog, initial encounter; Y92.830 Public park as the place of occurrence of the external cause; R33.9 Retention of urine, unspecified; E03.9 Hypothyroidism, unspecified; H40.9 Unspecified glaucoma; F90.9 Attention-deficit hyperactivity disorder, unspecified type; E78.5 Hyperlipidemia, unspecified; F32.A Depression, unspecified; Z20.822 Contact with and (suspected) exposure to COVID-19; J44.9 Chronic obstructive pulmonary disease, unspecified
CPT/HCPCS: 36415; 51701; 73502; 80048; 80053; 83735; 84100; 84443; 85025; 85610; 87633; 87635; 96372; 96374; 96375; 96376; 97161; 97165; 99284; 99285; A9270; G0378; J1170; Q0162

== ENCOUNTER 2022-02-09 08:00 | Outpatient (CLI) | payer OTHER ==
--- NOTE | 2022-02-09 17:48 | XRAY Report ---
PROCEDURE: Wrist 3 View LT INDICATIONS: LEFT WRIST INJURY TECHNIQUE: 3 views of the wrist were acquired. COMPARISON: None FINDINGS: Bones: Slightly comminuted and impacted fracture through distal radius is seen. There is no other fra cture or dislocation. Wrist joint osteoarthritic changes are noted. No suspicious bony lesions. Scaphoid view: Scaphoid is grossly intact. Soft tissues: Mild soft tissue swelling around this joint is seen. No suspicious soft tissue calcifi cations. IMPRESSION: Slightly comminuted and impacted distal radial fracture as above. Wrist joint osteoarthritis. Reviewed by: Ravinder Leonard MD on 02/09/2022 5:46 PM PST Approved by: Ravinder Leonard MD on 02/09/2022 5:46 PM PST Station ID: [id number]
== END 2022-02-09 08:01 | disposition home or self-care (01) ==
LOC: DI.S 08:00
PROVIDERS: ATTEND Physician Assistant
DX: S52.502A Unspecified fracture of the lower end of left radius, initial encounter for closed fracture (principal); M19.032 Primary osteoarthritis, left wrist

== ENCOUNTER 2022-02-10 15:23 | Outpatient (CLI) | payer OTHER ==
--- NOTE | 2022-02-10 17:26 | DEXA Report ---
PROCEDURE: Dexa Spine and/or Hip INDICATIONS: POST MENOPAUSAL TECHNIQUE: Dual energy x-ray absorptiometry (DXA) was performed on a [employer] System. Regions measur ed are the AP Spine, femoral neck, and if needed forearm. COMPARISON: None. FINDINGS: Lumbar Spine: Bone Mineral Density 0.798 g/cm/cm,T score -3.2, osteoporosis Left Femoral Neck: Bone Mineral Density 0.742 g/cm/cm, T score -2.1, osteopenia Left Hip: Bone Mineral Density 0.696 g/cm/cm,T score -2.5, osteoporosis (T score greater or equal to -1.0: NORMAL) (T score from -1.1 to -2.4: OSTEOPENIA) (T score less than or equal to -2.5 to: OSTEOPOROSIS) Impression: 1. Osteoporosis puts patient at a high fracture risk. Patients with diagnosis of osteoporosis or osteopenia should have regular bone mineral density assess ment. For those eligible for Medicare, routine testing is allowed once every 2 years. Testing frequ ency can be increased for patients who have rapidly progressing disease or for those who are receivin g medical therapy to restore bone mass. Reviewed by: Yasmin Melendrez MD on 02/10/2022 5:25 PM PST Approved by: Yasmin Melendrez MD on 02/10/2022 5:25 PM PST Station ID: [id number]
== END 2022-02-10 15:24 | disposition home or self-care (01) ==
LOC: DI 15:23
PROVIDERS: ATTEND Registered Nurse
DX: M81.0 Age-related osteoporosis without current pathological fracture (principal); Z78.0 Asymptomatic menopausal state

== ENCOUNTER 2022-02-15 15:33 | Outpatient (CLI) | payer OTHER ==
--- NOTE | 2022-02-16 11:48 | XRAY Report ---
PROCEDURE: Wrist 3 View LT INDICATIONS: LEFT WRIST FRACTURE TECHNIQUE: 3 views of the wrist were acquired. COMPARISON: Left wrist radiographs 02/09/2022 FINDINGS: Redemonstrated acute distal radius fracture. Since the previous examination, possible increase in mil d dorsal displacement of the distal fragment. Fracture plane likely involves the articular surface. P ossible/equivocal nondisplaced ulnar styloid fracture. Degenerative changes of the first CMC and STT joints redemonstrated. IMPRESSION: Redemonstrated distal radius fracture. Possible increase in mild dorsal displacement of the distal fr agment, however this could be artifactual related to projection. Reviewed by: Luis Armando Fontenot MD on 02/16/2022 11:[address] [facility] Approved by: Luis Armando Fontenot MD on 02/16/2022 11:[address] [facility] Station ID: [id number]
== END 2022-02-15 15:34 | disposition home or self-care (01) ==
LOC: DI.WOS 15:33
PROVIDERS: ATTEND Orthopaedic Surgery
DX: S52.572A Other intraarticular fracture of lower end of left radius, initial encounter for closed fracture (principal)

== ENCOUNTER 2022-03-15 15:55 | Outpatient (CLI) | payer OTHER ==
--- NOTE | 2022-03-15 16:04 | XRAY Report ---
PROCEDURE: Wrist 3 View LT INDICATIONS: LEFT WRIST FRACTURE TECHNIQUE: 3 views of the wrist were acquired. COMPARISON: Left wrist radiographs 02/15/2022 FINDINGS: Bones: Comminuted intra-articular fracture of the distal radius is again seen. There is mildly incre ased dorsal angulation when compared to the radiographs from 02/15/2022. Periosteal new bone formatio n is seen consistent with progressive healing changes. There is generalized osteopenia. Background de generative changes are noted. Soft tissues: No suspicious soft tissue calcifications. Soft tissue edema seen surrounding the wris t. IMPRESSION: Comminuted intra-articular distal radial fracture redemonstrated with mild progressive healing change s. There is mildly increased dorsal angulation of the distal fracture fragments when compared to the exam from 02/15/2022. Reviewed by: Luis Armando Viveros MD on 03/15/2022 4:02 PM PST Approved by: Luis Armando Viveros MD on 03/15/2022 4:02 PM PST Station ID: [id number]
== END 2022-03-15 15:56 | disposition home or self-care (01) ==
LOC: DI.WOS 15:55
PROVIDERS: ATTEND Physician Assistant Surgical
DX: S52.532D Colles' fracture of left radius, subsequent encounter for closed fracture with routine healing (principal)

== ENCOUNTER 2022-04-12 16:07 | Outpatient (CLI) | payer OTHER ==
--- NOTE | 2022-04-12 16:24 | XRAY Report ---
PROCEDURE: Wrist 3 View LT INDICATIONS: LEFT WRIST FRACTURE TECHNIQUE: Three views of the wrist were acquired. COMPARISON: 03/15/2022 FINDINGS: Unchanged comminuted intra-articular distal radius fracture with mild dorsal angulation also unchange d from previous exam. Small amount of periosteal new bone formation is consistent with ongoing healin g changes. Generalized demineralization and osteopenia. Background degenerative are similar. IMPRESSION: Stable alignment of comminuted intra-articular distal radius fracture with continued progressive new bone formation. Reviewed by: Christiano Delgado MD on 04/12/2022 4:23 PM PST Approved by: Christiano Delgado MD on 04/12/2022 4:23 PM PST Station ID: [id number]
== END 2022-04-12 16:19 | disposition home or self-care (01) ==
LOC: DI.WOS 16:07
PROVIDERS: ATTEND Orthopaedic Surgery
DX: S52.532D Colles' fracture of left radius, subsequent encounter for closed fracture with routine healing (principal)

== ENCOUNTER 2022-04-26 14:16 | Outpatient (CLI) | payer OTHER ==
--- NOTE | 2022-04-27 10:45 | Mammography Report ---
BILATERAL DIGITAL SCREENING MAMMOGRAM 3D/2D: 04/26/2022 CLINICAL: Routine screening. Comparison is made to exams dated: 04/20/2021 mammogram and 01/23/2019 mammogram - [facility]. Both breasts are almost entirely fatty (category a/<25% glandular tissue). No significant masses, calcifications, or other findings are seen in either breast. There has been no significant interval change. IMPRESSION: NEGATIVE There is no mammographic evidence of malignancy. A 1 year screening mammogram is recommended. Based on the Tyrer Cuzick model (a risk assessment model) the patients lifetime risk is 3.8% and her 10 year risk is 1.5%. According to the ACR, ACS, and NCCN guidelines, an annual breast MRI exam chuckie g with mammogram is recommended if the patients lifetime risk is 20% or greater. This exam was interpreted at Station ID: [id number]. NOTE: For mammograms, a report in lay terms will be sent to the patient. Approximately 15% of breast malignancies will not be visualized mammographically. In the management of a palpable breast mass, a negative mammogram must not discourage biopsy of a clinically suspicious lesion. Electronically Signed By: Reid Cruz M.D. [email or web address]:04/26/2022 16:46:11 letter sent: No_Letter ACR BI-RADS Category 1: Negative 3341F PARENCHYMAL PATTERN: (F) - The breast(s) demonstrate(s) diffuse fatty replacement. BI-RADS CATEGORY: (1) - 1 RECOMMENDATION: (ANNUAL) - Recommend routine annual screening mammography. [id number] 1 year screening LATERALITY: (B)
== END 2022-04-26 14:17 | disposition home or self-care (01) ==
LOC: DI.S 14:16
PROVIDERS: ATTEND Registered Nurse
DX: Z12.31 Encounter for screening mammogram for malignant neoplasm of breast (principal)

== ENCOUNTER 2023-02-10 14:40 | Outpatient (CLI) | payer OTHER ==
[2023-02-10 20:03] LABS: BASOPHILS # (AUTO) 0.1 10^3/uL (0.0-0.1); BASOPHILS % (AUTO) 1.2 %; EOSINOPHILS # (AUTO) 0.3 10^3/uL (0.0-0.7); EOSINOPHILS % (AUTO) 4.4 %; HCT - HEMATOCRIT 39.7 % (37.0-47.0); HGB - HEMOGLOBIN 12.8 g/dL (12.0-16.0); LYMPHOCYTES % (AUTO) 34.6 %; MEAN CORPUSCULAR HEMOGLOBIN 31.2 pg (27.0-31.0); MEAN CORPUSCULAR HGB CONC 32.2 g/dL (32.0-36.0); MEAN CORPUSCULAR VOLUME 96.8 fL (81.0-99.0); MEAN PLATELET VOLUME 10.1 fL (7.9-10.8); MONOCYTES # (AUTO) 0.5 10^3/uL (0.0-1.0); MONOCYTES % (AUTO) 8.2 %; NEUTROPHILS # (AUTO) 2.9 10^3/uL (1.5-6.6); NEUTROPHILS % (AUTO) 51.3 %; PLT - PLATELET COUNT 396 10^3/uL (130-450); RED CELL DISTRIBUTION WIDTH 12.6 % (12.0-15.0); WHITE BLOOD COUNT 5.7 x10^3/uL (4.8-10.8)
[2023-02-10 20:35] LABS: ALBUMIN 4.6 g/dL (3.2-5.5); ALBUMIN/GLOBULIN RATIO 1.6 (1.0-2.2); ALKALINE PHOSPHATASE 68 IU/L (42-121); ALT ALANINE AMINOTRANSFERASE 20 IU/L (10-60); AST ASPARTATE AMINOTRANSFERASE 14 IU/L (10-42); BILIRUBIN,TOTAL 0.5 mg/dL (0.2-1.0); BUN - BLOOD UREA NITROGEN 8 mg/dL (6-20); CALCIUM 9.7 mg/dL (8.5-10.3); CARBON DIOXIDE - CO2 29 mmol/L (21-32); CHLORIDE 101 mmol/L (101-111); CHOL/HDL RATIO 2.8 (<4.4); CHOLESTEROL 170 mg/dL; CREATININE 0.7 mg/dL (0.6-1.3); GFR - MDRD 85 (>89); GLUCOSE 89 mg/dL (74-104); HDL CHOLESTEROL 61 mg/dL; LDL CHOLESTEROL,CALCULATED 94 mg/dL; LDL/HDL RATIO 1.5 (<4.4); POTASSIUM 3.7 mmol/L (3.5-4.5); SODIUM 137 mmol/L (135-145); TOTAL PROTEIN 7.5 g/dL (6.4-8.9); TRIGLYCERIDES 75 mg/dL (48-352); VLDL CHOLESTEROL 15 mg/dL
[2023-02-10 20:44] LABS: THYROID STIMULATING HORMONE 2.33 uIU/mL (0.34-5.60)
== END 2023-02-10 14:41 | disposition home or self-care (01) ==
LOC: LAB.S 14:40
PROVIDERS: ATTEND Registered Nurse
DX: E03.9 Hypothyroidism, unspecified (principal); L65.9 Nonscarring hair loss, unspecified; Z79.899 Other long term (current) drug therapy; Z13.220 Encounter for screening for lipoid disorders
CPT/HCPCS: 36415; 80053; 80061; 82306; 83721; 84443; 85025

== ENCOUNTER 2023-08-09 14:55 | Outpatient (CLI) | payer OTHER ==
--- NOTE | 2023-08-09 21:14 | DEXA Report ---
PROCEDURE: Dexa Spine and/or Hip INDICATIONS: OSTEOPOROSIS TECHNIQUE: Dual energy x-ray absorptiometry (DXA) was performed on a [employer] System. Regions measur ed are the AP Spine, femoral neck, and if needed forearm. COMPARISON: DEXA 02/10/2022 FINDINGS: Lumbar Spine: Bone Mineral Density: 0.791 g/cm/cm, T score: -3.2. There has been no statistically significant andino ge in bone mineral density since the prior study. Left Femoral Neck: Bone Mineral Density: 0.738 g/cm/cm, T score: -2.2. Left Hip: Bone Mineral Density: 0.714 g/cm/cm, T score: -2.3. There has been no statistically significant henderson e in bone mineral density since the prior study. (T score greater or equal to -1.0: NORMAL) (T score from -1.1 to -2.4: OSTEOPENIA) (T score less than or equal to -2.5 to: OSTEOPOROSIS) Impression: By WHO criteria, this patient has osteoporosis. No statistical interval change in bone mineral density of the lumbar spine. No statistical interval change in bone mineral density of the hip. Patients with diagnosis of osteoporosis or osteopenia should have regular bone mineral density assess ment. For those eligible for Medicare, routine testing is allowed once every 2 years. Testing frequ ency can be increased for patients who have rapidly progressing disease or for those who are receivin g medical therapy to restore bone mass. Reviewed by: Ganga Chaudhari MD on 08/09/2023 9:12 PM PDT Approved by: Ganga Chaudhari MD on 08/09/2023 9:12 PM PDT Station ID: [id number]
== END 2023-08-09 14:56 | disposition home or self-care (01) ==
LOC: DI 14:55
PROVIDERS: ATTEND Registered Nurse
DX: M81.0 Age-related osteoporosis without current pathological fracture (principal)